=== PATIENT | male | born 2000 | race Hispanic/Latino ===

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

== ENCOUNTER 2024-11-13 13:01 | Emergency (ER) | payer BC, SELFPAY ==
[2024-11-13] MEDS ORDERED: KETOROLAC 30 MG/ML INJ ONE (13:32)
[2024-11-13 13:35] LABS: Absolute Basophils 0.1 K/uL (0-0.5); Absolute Eosinophils 0.1 K/uL (0-0.5); Absolute Lymphocytes (CBC) 2.8 K/uL (0.7-4.9); Absolute Monocytes 0.8 K/uL (0.1-1.3); Basophils % 0.6 % (0-1.3); Eosinophils % 1.2 % (0-4.4); Hematocrit 45.4 % (39.6-49.0); Hemoglobin 15.7 g/dL (13.6-17.9); Lymphocytes % 28.9 % (15.3-44.8); MCHC 34.7 g/dL (32.0-36.0); MCV 89.3 fL (80-100); MPV 7.8 fL (7.6-11.3); Monocytes % 7.8 % (3.3-12.3); Neutrophils % 61.5 % (41.7-73.7); Nucleated Red Blood Cells % 0.2 % (0-0); Platelets 282 thou/uL (152-406); RBC Red Blood Cell Count 5.08 M/uL (4.33-5.43); Red Cell Distribution Width 13.5 % (12.1-15.2)
[2024-11-13 13:51] LABS: Albumin 4.1 g/dL (3.4-5.0); Anion Gap 8.7 mEq/L (5.0-15.0); Bilirubin Total 0.8 mg/dL (0.2-1.0); Globulin 4.1 g/dL (2.3-3.5); Potassium 3.7 mEq/L (3.5-5.1); Protein, Total 8.2 g/dL (6.4-8.2)
--- NOTE | 2024-11-13 13:59 | RAD REPORT ---
EXAM:Ankle Right 3 View CLINICAL HISTORY: Ankle pain FINDINGS: No fracture or dislocation seen. No bone or joint abnormality noted
--- NOTE | 2024-11-13 14:00 | RAD REPORT ---
Exam:Foot Right 3 View CLINICAL HISTORY: Right foot pain FINDINGS: No fracture or dislocation seen Mild hallux valgus deformity
--- NOTE | 2024-11-13 14:42 | EDPHYS ---
Physician Documentation [facility] Name: Ulisses Montilla Age: 23 yrs Sex: Male : 2000 Arrival Date: 11/13/2024 Time: 13:01 Bed 20 Private MD: ED Physician Will Pereira HPI: 11/13 13:13 This 23 yrs old Male presents to ER via Wheelchair with complaints of Foot dr5 Pain. 13:13 The patient presents with pain, that is acute, swelling. Patient is a 23-year-old male dr5 coming in with right foot swelling, pain that started yesterday. Patient denies trauma. Patient reports he has not had an annual visit within the last year. Patient reports he is unable to walk on it.. Historical: - Allergies: 13:11 Poison Melissa; cm10 - Home Meds: 13:11 None [Active]; cm10 - PMHx: 13:11 None; cm10 - PSHx: 13:11 None; cm10 - Immunization history:: Adult Immunizations up to date. - Infectious Disease History:: Denies. - Social history:: Smoking status: Reported history of juuling and/or vaping. ROS: 13:13 Constitutional: as per hpi dr5 Exam: 13:13 Constitutional: This is a well developed, well nourished patient who is awake, alert, dr5 and in no acute distress. Head/Face: Normocephalic, atraumatic. ENT: Nares patent. No nasal discharge, no septal abnormalities noted. Tympanic membranes are normal and external auditory canals are clear. Oropharynx with no redness, swelling, or masses, exudates, or evidence of obstruction, uvula midline. Mucous membranes moist. Neck: Trachea midline, no thyromegaly or masses palpated, and no cervical lymphadenopathy. Supple, full range of motion without nuchal rigidity, or vertebral point tenderness. No Meningismus. Chest/axilla: Normal chest wall appearance and motion. Nontender with no deformity. No lesions are appreciated. Respiratory: Lungs have equal breath sounds bilaterally, clear to auscultation. No rales, rhonchi or wheezes noted. No increased work of breathing, no retractions or nasal flaring. Back: No spinal tenderness. No costovertebral tenderness. Full range of motion. Skin: Warm, dry with normal turgor. Normal color with no rashes, no lesions, and no evidence of cellulitis. 13:13 Musculoskeletal/extremity: Extremities: noted in the right foot: pain, swelling, tenderness, ROM: limited active range of motion, Circulation is intact in all extremities. Sensation intact. Vital Signs: 13:09 BP 142 / 97; Pulse 105; Resp 15; Temp 97.2(TE); Pulse Ox 100% on R/A; Weight 90.72 kg; cm10 Height 5 ft. 8 in. ; Pain 9/10; 14:30 BP 132 / 78; Pulse 89; Resp 18; Temp 98; Pulse Ox 98% on R/A; ph 13:09 Body Mass Index 30.41 (90.72 kg, 172.72 cm) cm10 13:09 Pain Scale: Adult cm10 MDM: 13:07 Medical Screening Exam initiated dr5 17:30 Differential diagnosis: dislocation, open fracture, closed fracture, contusion. dr5 Differential diagnosis: Plantar fasciitis. Data reviewed: vital signs, nurses notes. Data reviewed: radiologic studies, plain films. Care significantly affected by the following chronic conditions:. Care significantly affected by the following Social Determinants of Health: Poor access to healthcare and/or lack of insurance, Poor access to transportation, Problems related to employment. Counseling: I had a detailed discussion with the patient and/or guardian regarding the historical points, exam findings, and any diagnostic results supporting the discharge/admit diagnosis, the presence of at least one elevated blood pressure reading (>120/80) during this emergency department visit, radiology results, the need for outpatient follow up, for definitive care, a family practitioner, a orthopedic surgeon, to return to the emergency department if symptoms worsen or persist or if there are any questions or concerns that arise at home. ED course: X-ray did not reveal any fracture. Discussed patient's labs which included mild elevation of liver enzymes. Printed out results and x-ray results to take to regular doctor. Yimi wrap applied. Patient is feeling better after medication. Recommended follow-up and return to ER if worsening conditions.. 11/13 13:13 Order name: CBC with Diff; Complete Time: 13:53 dr5 11/13 13:13 Order name: CMP; Complete Time: 13:53 11/13 13:13 Order name: Foot Right 3 View XRAY; Complete Time: 14: dr5 11/13 13:13 Order name: Ankle Right 3 View XRAY; Complete Time: 13:59 dr5 11/13 14:41 Order name: Yimi Wrap; Complete Time: 15:14 dr5 Administered Medications: 13:37 Drug: Ketorolac IVP 15 mg IVP once Route: IVP; Site: right antecubital; ph 15:29 Follow up: Response: No adverse reaction ph 15:14 Drug: HYDROcodone-acetaminophen PO 5 mg-325 mg 2 tabs PO once Route: PO; ph 15:28 Follow up: Response: No adverse reaction; Medication administered at discharge. ph Disposition Summary: 11/13/24 14:41 Discharge Ordered Notes: Location: Home dr5 Condition: Stable dr5 Diagnosis - Pain in right foot dr5 Followup: dr5 - With: Emergency Department - When: As needed - Reason: Worsening of condition Followup: dr5 - With: Private Physician - When: 1 - 2 days - Reason: Recheck today's complaints, Continuance of care, Re-evaluation by your physician Discharge Instructions: - Discharge Summary Sheet dr5 - Foot Pain dr5 Forms: - Work release form dr5 - Medication Reconciliation Form dr5 - Patient Portal Instructions dr5 - Leadership Thank You Letter dr5 Addendum: 11/15/2024 15:30 Co-signature as Attending Physician, Will Pereira MD I agree with the assessment and c banegas plan of care. Signatures: Dispatcher [employer] Will Acuña MD MD cha Hall, Patricia, RN RN China Flores RN RN cm10 Subhash Fay, INFRASTRUCTURE DESIGN ENGINEER-C INFRASTRUCTURE DESIGN ENGINEER-Cdr5 Corrections: (The following items were deleted from the chart) 11/13 13:11 13:11 Allergies: No Known Allergies; cm10 cm10
--- NOTE | 2024-11-13 14:42 | ER ---
Nurse's Notes [facility] Name: Ulisses Montilla Age: 23 yrs Sex: Male : 2000 Arrival Date: 11/13/2024 Time: 13:01 Bed 20 Private MD: Diagnosis: Pain in right foot Presentation: 11/13 13:09 Chief complaint: Patient states: right foot pain onset yesterday. Pt states that the cm10 pain is worse when standing. Coronavirus screen: Client denies travel out of the [place] in the last 14 days. Ebola Screen: Patient denies travel to an Ebola-affected area in the 21 days before illness onset. No symptoms or risks identified at this time. Initial Sepsis Screen: Does the patient meet any 2 criteria? HR > 90 bpm. Does the patient have a suspected source of infection? No. Patient's initial sepsis screen is negative. Risk Assessment: Do you want to hurt yourself or someone else? Patient reports no desire to harm self or others. Onset of symptoms was November 12, 2024. 13:09 Method Of Arrival: Wheelchair cm10 13:09 Acuity: AAKASH 4 cm10 Triage Assessment: 13:11 General: Appears in no apparent distress. uncomfortable, Behavior is calm, cooperative. cm10 Pain: Complains of pain in right foot Pain does not radiate. Pain currently is 9 out of 10 on a pain scale. Neuro: No deficits noted. Level of Consciousness is awake, alert, obeys commands, Oriented to person, place, time, situation, Appropriate for age. Respiratory: No deficits noted. Airway is patent Respiratory effort is even, unlabored, Respiratory pattern is regular, symmetrical. Historical: - Allergies: 13:11 Poison Melissa; cm10 - Home Meds: 13:11 None [Active]; cm10 - PMHx: 13:11 None; cm10 - PSHx: 13:11 None; cm10 - Immunization history:: Adult Immunizations up to date. - Infectious Disease History:: Denies. - Social history:: Smoking status: Reported history of juuling and/or vaping. Screenin:27 [facility] ED Fall Risk Assessment (Adult) History of falling in the last 3 months, ph including since admission No falls in past 3 months (0 pts) Confusion or Disorientation No (0 pts) Intoxicated or Sedated No (0 pts) Impaired Gait Yes (1 pt) Mobility Assist Device Used No (0 pt) Altered Elimination No (0 pt) Score/Fall Risk Level 0 - 2 = Low Risk Oriented to surroundings, Maintained a safe environment, Hourly rounding (assess needs \T\ fall precautionary measures) done. Abuse screen: Denies threats or abuse. Denies injuries from another. Nutritional screening: No deficits noted. Tuberculosis screening: No symptoms or risk factors identified. Assessment: 14:00 General: Appears in no apparent distress. Behavior is calm, cooperative. Pain: ph Complains of pain in right foot. Neuro: Level of Consciousness is awake, alert, obeys commands, Oriented to person, place, time, situation. Derm: Skin is pink, warm \T\ dry. Musculoskeletal: Swelling present in right foot. Vital Signs: 13:09 BP 142 / 97; Pulse 105; Resp 15; Temp 97.2(TE); Pulse Ox 100% on R/A; Weight 90.72 kg; cm10 Height 5 ft. 8 in. ; Pain 9/10; 14:30 BP 132 / 78; Pulse 89; Resp 18; Temp 98; Pulse Ox 98% on R/A; ph 13:09 Body Mass Index 30.41 (90.72 kg, 172.72 cm) cm10 13:09 Pain Scale: Adult cm10 ED Course: 13:06 Patient arrived in ED. ra3 13:07 Subhash Fay FNP-C [facility]. dr5 13:07 Will Pereira MD is Attending Physician. dr5 13:10 Triage completed. cm10 13:10 Arm band placed on right wrist. Patient placed in an exam room, on a stretcher. cm10 13:15 Kelly Mcintyre, RN is Primary Nurse. ph 13:37 Initial lab(s) drawn, by tx, sent to lab. Inserted saline lock: 20 gauge in right ph antecubital area, using aseptic technique. Blood collected. Flushed with 10 mL NS. 13:55 Foot Right 3 View XRAY In Process Unspecified. EDMS 13:55 Ankle Right 3 View XRAY In Process Unspecified. EDMS 14:00 Patient has correct armband on for positive identification. Bed in low position. Call ph light in reach. Pulse ox on. NIBP on. Door closed. Noise minimized. 15:28 No provider procedures requiring assistance completed. IV discontinued, intact, ph bleeding controlled, No redness/swelling at site. Pressure dressing applied. Administered Medications: 13:37 Drug: Ketorolac IVP 15 mg IVP once Route: IVP; Site: right antecubital; ph 15:29 Follow up: Response: No adverse reaction ph 15:14 Drug: HYDROcodone-acetaminophen PO 5 mg-325 mg 2 tabs PO once Route: PO; ph 15:28 Follow up: Response: No adverse reaction; Medication administered at discharge. ph Medication: 15:27 VIS not applicable for this client. ph Outcome: 14:41 Discharge ordered by MD. dr5 15:28 Discharged to home with friend, ph 15:28 Condition: good 15:28 Discharge instructions given to patient, Instructed on discharge instructions, follow up and referral plans. Demonstrated understanding of instructions, follow-up care, 15:30 Patient left the ED. ph Signatures: Dispatcher [employer] EDKelly Rivers RN RN China Flores RN RN [facility] Nataliia Gustafson 3 Subhash Fay, TEACHER TUTOR-C TEACHER TUTOR-Cdr5 Corrections: (The following items were deleted from the chart) 13:11 13:11 Allergies: No Known Allergies; cm10 cm10
[2024-11-13] MEDS ORDERED: HYDROCODONE/APAP 5/325 MG TAB ONE (14:52)
[2024-11-13 16:47] VITALS: BP 132/78; TEMP 98; O2SAT 98
== END 2024-11-13 15:30 | disposition home or self-care (01) ==
LOC: ER 13:01
DX: M79.671 Pain in right foot (principal)
CPT/HCPCS: 36415; 80053; 85025; 96374; 99284

== ENCOUNTER 2024-11-16 15:15 | Emergency (ER) | payer BC ==
--- NOTE | 2024-11-16 16:29 | RAD REPORT ---
EXAMINATION: US RIGHT LOWER EXTREMITY VENOUS DOPPLER CLINICAL INDICATION: PAIN RIGHT TECHNIQUE: Complete bilateral duplex sonography of the RIGHT lower extremity veins was performed. The examination included compression for vein patency, color Doppler imaging and flow augmentation in response to distal compression of the distal external iliac, common femoral, femoral, popliteal, tibi al, and great and small saphenous veins. COMPARISON: No prior exam. FINDINGS: Duplex sonography testing of the veins of the RIGHT lower extremity was performed. Color flow imaging shows all veins to be compressible with [id number] color filling. Pulsatile and phasic flow is present within all lower extremity deep and superficial veins examined. IMPRESSION: There is no deep vein or superficial vein thrombosis.
--- NOTE | 2024-11-16 16:41 | ER ---
Nurse's Notes [facility] Name: Ulisses Montilla Age: 23 yrs Sex: Male : 2000 Arrival Date: 11/16/2024 Time: 15:15 Bed DX4 Private MD: Diagnosis: Pain in right ankle and joints of right foot Presentation: 11/16 15:45 Chief complaint: Patient states: right foot pain started Thursday. No known injury. I tm6 came here and was told to take tylenol and ibuprofen but it isn't helping. Coronavirus screen: Client denies travel out of the [place] in the last 14 days. Ebola Screen: Patient negative for fever greater than or equal to 101.5 degrees Fahrenheit, and additional compatible Ebola Virus Disease symptoms Patient denies exposure to infectious person. Patient denies travel to an Ebola-affected area in the 21 days before illness onset. No symptoms or risks identified at this time. Initial Sepsis Screen:. Risk Assessment: Do you want to hurt yourself or someone else? Patient reports no desire to harm self or others. Onset of symptoms was November 13, 2024. 15:45 Method Of Arrival: Wheelchair tm6 15:45 Acuity: AAKASH 4 tm6 15:47 Initial Sepsis Screen: Does the patient meet any 2 criteria? No. Patient's initial tm6 sepsis screen is negative. Does the patient have a suspected source of infection? No. Patient's initial sepsis screen is negative. Triage Assessment: 15:46 General: Appears in no apparent distress. uncomfortable, Behavior is calm, cooperative. tm6 Pain: Complains of pain in right foot. EENT: No signs and/or symptoms were reported regarding the EENT system. Neuro: Level of Consciousness is awake, alert, obeys commands, Oriented to person, place, time, situation. Cardiovascular: Patient's skin is warm and dry. Respiratory: Airway is patent Respiratory effort is even, unlabored, Respiratory pattern is regular, symmetrical. GI: No signs and/or symptoms were reported involving the gastrointestinal system. Abdomen is flat, non-distended. : No signs and/or symptoms were reported regarding the genitourinary system. Derm: No signs and/or symptoms reported regarding the dermatologic system. Musculoskeletal: Reports pain in right foot. Historical: - Allergies: 15:46 POISON MILTON; tm6 - PMHx: 15:46 None; tm6 - PSHx: 15:46 None; tm6 - Immunization history:: Flu vaccine is not up to date. - Infectious Disease History:: Denies. - Social history:: Smoking status: Patient denies any tobacco usage or history of. Screenin:52 [facility] ED Fall Risk Assessment (Adult) History of falling in the last 3 months, tm6 including since admission No falls in past 3 months (0 pts) Confusion or Disorientation No (0 pts) Intoxicated or Sedated No (0 pts) Impaired Gait Yes (1 pt) Mobility Assist Device Used No (0 pt) Altered Elimination No (0 pt) Score/Fall Risk Level 0 - 2 = Low Risk Oriented to surroundings, Maintained a safe environment, Educated pt \T\ family on fall prevention, incl call for assistance when getting out of bed. Abuse screen: Denies threats or abuse. Denies injuries from another. Nutritional screening: No deficits noted. Tuberculosis screening: No symptoms or risk factors identified. Assessment: 16:52 Reassessment: see triage assessment. tm6 Vital Signs: 15:47 Temp 98.7(TE); Weight 90.72 kg; Height 5 ft. 8 in. ; Pain 9/10; tm6 15:47 BP 123 / 73; Pulse 88; Resp 16; Pulse Ox 99% on R/A; MAP 87 mmHg; tm6 16:52 BP 120 / 72; Pulse 89; Resp 16; Temp 98.7; Pulse Ox 100% on R/A; Pain 7/10; tm6 15:47 Body Mass Index 30.41 (90.72 kg, 172.72 cm) tm6 15:47 Pain Scale: Adult tm6 16:52 Pain Scale: Adult tm6 ED Course: 15:17 Patient arrived in ED. ra3 15:20 Kelsi Barrett FNP-C is PHCP. kb 15:20 Priscilla Claros MD is Attending Physician. kb 15:46 Triage completed. tm6 15:48 Arm band placed on right wrist. tm6 16:25 US Extremity Venous Unilateral Ltd In Process Unspecified. EDMS 16:52 Debbie Serna, RN is Primary Nurse. tm6 16:52 Patient has correct armband on for positive identification. Provided Education on: use tm6 of prescription. 16:52 No provider procedures requiring assistance completed. Patient did not have IV access tm6 during this emergency room visit. Administered Medications: 16:52 Drug: HYDROcodone-acetaminophen PO 5 mg-325 mg 1 tabs PO once Route: PO; tm6 16:52 Follow up: Response: Medication administered at discharge. tm6 Medication: 16:52 VIS not applicable for this client. tm6 Outcome: 16:40 Discharge ordered by MD. bernstein 16:52 Discharged to home via wheelchair, with family, tm6 16:52 Condition: stable 16:52 Discharge instructions given to patient, Instructed on discharge instructions, follow up and referral plans. medication usage, vidya wrap Demonstrated understanding of instructions, follow-up care, medications, vidya wrap Prescriptions given X 1, 16:54 Patient left the ED. tm6 Signatures: Dispatcher [employer] EDKelsi Schwarz, CHARIS KERR-Debbie Medina RN RN tm6 Nataliia Gustafson 3
--- NOTE | 2024-11-16 16:41 | EDPHYS ---
Physician Documentation [facility] Name: Ulisses Montilla Age: 23 yrs Sex: Male : 2000 Arrival Date: 11/16/2024 Time: 15:15 Bed DX4 Private MD: ED Physician Priscilla Claros HPI: 11/16 15:59 This 23 yrs old Male presents to ER via Wheelchair with complaints of kb ankle/foot pain is getting worse. 15:59 Pt is a 23 year old male with no medical history who presents for pain to right ankle kb that radiates up right calf. States the pain started in foot and ankle 3 days ago with swelling. was seen here on day of onset, had labs and xray completed. States the pain in foot has resolved, but the ankle pain is now spreading up the leg. Denies fever, injury. Historical: - Allergies: 15:46 POISON MILTON; tm6 - PMHx: 15:46 None; tm6 - PSHx: 15:46 None; tm6 - Immunization history:: Flu vaccine is not up to date. - Infectious Disease History:: Denies. - Social history:: Smoking status: Patient denies any tobacco usage or history of. ROS: 16:00 Constitutional: As per HPI kb Exam: 16:00 Constitutional: This is a well developed, well nourished patient who is awake, alert, kb and in no acute distress. Head/Face: Normocephalic, atraumatic. ENT: Moist Mucous membranes Cardiovascular: Regular rate Respiratory: Respirations even and unlabored. No increased work of breathing. Talking in full sentences Abdomen/GI: Soft, non-tender. No distention Skin: Warm, dry with normal turgor. Normal color. Neuro: Awake and alert, GCS 15, oriented to person, place, time, and situation. 16:00 Musculoskeletal/extremity: Extremities: noted in the right calf and right Achilles: pain, tenderness, ROM: intact in all extremities, Circulation is intact in all extremities. Sensation intact. Vital Signs: 15:47 Temp 98.7(TE); Weight 90.72 kg; Height 5 ft. 8 in. ; Pain 9/10; tm6 15:47 BP 123 / 73; Pulse 88; Resp 16; Pulse Ox 99% on R/A; MAP 87 mmHg; tm6 16:52 BP 120 / 72; Pulse 89; Resp 16; Temp 98.7; Pulse Ox 100% on R/A; Pain 7/10; tm6 15:47 Body Mass Index 30.41 (90.72 kg, 172.72 cm) tm6 15:47 Pain Scale: Adult tm6 16:52 Pain Scale: Adult tm6 MDM: 15:20 Medical Screening Exam initiated kb 16:38 Data reviewed: vital signs, nurses notes. 16:38 Differential diagnosis: sprain, dvt. Test considered but Not performed: X-ray: xray kb considered but were done 3 days ago and normal, no injury. External Records Reviewed: labs and xray from previous visit reviewed. Counseling: I had a detailed discussion with the patient and/or guardian regarding the historical points, exam findings, and any diagnostic results supporting the discharge/admit diagnosis, radiology results, the need for outpatient follow up, a family practitioner, to return to the emergency department if symptoms worsen or persist or if there are any questions or concerns that arise at home. 16:39 ED course: No erythema, swelling, warmth, fever. Pt educated on need for follow up with PCP and/or orthopedics for continued pain. 11/16 15:47 Order name: US Extremity Venous Unilateral Ltd; Complete Time: 16:32 kb 11/16 16:39 Order name: Yimi Wrap; Complete Time: 16:52 kb Administered Medications: 16:52 Drug: HYDROcodone-acetaminophen PO 5 mg-325 mg 1 tabs PO once Route: PO; tm6 16:52 Follow up: Response: Medication administered at discharge. [facility] Disposition Summary: 11/16/24 16:40 Discharge Ordered Notes: Location: Home Condition: Stable kb Diagnosis - Pain in right ankle and joints of right foot kb Followup: kb - With: Emergency Department - When: As needed - Reason: Worsening of condition Followup: kb - With: Private Physician - When: 2 - 3 days - Reason: Recheck today's complaints, Continuance of care, Re-evaluation by your physician Discharge Instructions: - Discharge Summary Sheet kb - Ankle Pain kb Forms: - Medication Reconciliation Form kb - Antibiotic Education kb - Prescription Opioid Use kb - Patient Portal Instructions kb - Leadership Thank You Letter kb Prescriptions: - orphenadrine citrate 100 mg Oral Tablet Sustained Release - take 1 tablet ORAL route 2 times per day As needed; 20 tablet; Refills: 0, kb Product Selection Permitted Signatures: Dispatcher [employer] EDKelsi Schwarz, CIRILO-C CROSS TIE CUTTER-Debbie Medina, RN RN tm6 Corrections: (The following items were deleted from the chart) 15:48 15:47 Extremity Venous Uni Ltd+[email or web address] ordered. EDMS EDMS 16:48 16:39 ED course: Pt educated on need for follow up with PCP and/or orthopedics for kb continued pain. kb
[2024-11-16] MEDS ORDERED: HYDROCODONE/APAP 5/325 MG TAB ONE (16:44)
[2024-11-16 16:58] VITALS: TEMP 98.7
[2024-11-16 17:00] VITALS: BP 120/72; O2SAT 100
== END 2024-11-16 16:54 | disposition home or self-care (01) ==
LOC: ER 15:15
DX: M25.571 Pain in right ankle and joints of right foot (principal)
CPT/HCPCS: 93971; 99283